=== PATIENT | female | born 1935 | race Caucasian/White ===

== ENCOUNTER 2018-02-22 18:25 | Emergency (ER) | payer MEDICARE, OTHER ==
[2018-02-22] MEDS ORDERED: Sodium Chloride 0.9% 10 ML Syringe FLUSH PRN (20:52)
[2018-02-22] MEDS ORDERED: Sodium Chloride 0.9% 1,000 ML IV ONE ×2 (20:52→21:08)
[2018-02-22] MEDS ORDERED: Acetaminophen 500 MG Tab PO ONE (20:53)
[2018-02-22] MEDS ORDERED: Ondansetron 4 MG/2 ML SDV IVPUSH ONE (20:53)
--- NOTE | 2018-02-22 21:01 | EDM.PDOC ---
ED HPI GENERAL MEDICAL PROBLEM - General Chief Complaint: Genitourinary Problem Stated Complaint: LOW BACK PAIN, FEVER Time Seen by Provider: 02/22/18 20:40 Source of Information: Reports: Patient, Family History Limitations: Reports: No Limitations - History of Present Illness INITIAL COMMENTS - FREE TEXT/NARRATIVE: Rosalina presents tonight with complaints of right flank pain, fever, chills, nausea for two days. 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 Right Flank Pain Score (Numeric/FACES): 4 - Related Data Allergies Allergy/AdvReac Type Severity Reaction Status Date / Time No Known Allergies Allergy Verified 02/22/18 19:52 Home Meds: Home Meds Amitriptyline [Elavil] 10 mg PO BEDTIME 02/22/18 [History] Aspirin [Adult Aspirin] 81 mg PO BEDTIME 02/22/18 [History] Celecoxib [CeleBREX] 200 mg PO BEDTIME 02/22/18 [History] Ergocalciferol (Vitamin D2) [Vitamin D2] 2,000 unit PO BEDTIME 02/22/18 [History ] Levothyroxine [Synthroid] 50 mcg PO BEDTIME 02/22/18 [History] Omeprazole 40 mg PO BEDTIME 02/22/18 [History] Ranitidine HCl [Ranitidine] 150 mg PO BID 02/22/18 [History] Zolpidem Tartrate [Ambien] 5 mg PO ASDIRECTED PRN 02/22/18 [History] atorvaSTATin [Lipitor] 20 mg PO BEDTIME 02/22/18 [History] Past Medical History HEENT History: Reports: Cataract, Hard of Hearing, Impaired Vision, Other (See Below) Other HEENT History: bilateral hearing aids Gastrointestinal History: Reports: Chronic Constipation Genitourinary History: Reports: UTI, Recurrent 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: Musculoskeletal History: Reports: Arthritis, Fracture Endocrine/Metabolic History: Reports: Hypothyroidism - Infectious Disease History Infectious Disease History: Reports: Chicken Pox, Measles, Mumps, Shingles - Past Surgical History HEENT Surgical History: Reports: Adenoidectomy, Cataract Surgery, Tonsillectomy Female Surgical History: Reports: Section, Hysterectomy, Salpingo- Oophorectomy Musculoskeletal Surgical History: Reports: Hip Replacement Social & Family History - Tobacco Use Smoking Status *Q: Never Smoker - Caffeine Use Caffeine Use: Reports: Coffee - Recreational Drug Use Recreational Drug Use: No ED ROS GENERAL - Review of Systems Review Of Systems: See Below Constitutional: Reports: Fever, Chills, Weakness HEENT: Reports: No Symptoms Respiratory: Denies: Shortness of Breath, Wheezing, Cough, Sputum Cardiovascular: Denies: Chest Pain, Blood Pressure Problem, Dyspnea on Exertion , Edema, Lightheadedness, Orthopnea, Palpitations, PND, Syncope Endocrine: Reports: No Symptoms GI/Abdominal: Reports: Nausea. Denies: Abdominal Pain, Black Stool, Bloody Stool, Constipation, Diarrhea, Difficulty Swallowing, Distension, Hematochezia, Vomiting : Reports: Flank Pain. Denies: Dysuria, Frequency, Hematuria, Incontinence, Pain, Urgency, Urinary Retention Musculoskeletal: Reports: Other (low back pain) Skin: Denies: Diaphoresis, Bruising, Pruritis, Rash, Erythema Neurological: Denies: Confusion, Dizziness, Headache, Numbness, Tingling, Difficulty Walking, Weakness, Gait Disturbance Psychiatric: Reports: No Symptoms Hematologic/Lymphatic: Reports: No Symptoms Immunologic: Reports: No Symptoms ED EXAM, RENAL/ - Physical Exam Exam: See Below Text/Narrative:: Rosalina is an alert and oriented 82 year old female presenting with complaints of fever, chills, nausea and right flank pain for two days. Exam Limited By: No Limitations General Appearance: Alert, WD/WN, Moderate Distress Eye Exam: Bilateral Eye: EOMI, Normal Inspection, PERRL Ears: Normal External Exam, Normal Canal, Hearing Grossly Normal, Normal TMs Nose: Normal Inspection, Normal Mucosa, No Blood Throat/Mouth: Normal Inspection, Normal Lips, Normal Teeth, Normal Gums, Normal Oropharynx, Normal Voice, No Airway Compromise Head: Atraumatic, Normocephalic Neck: Normal Inspection, Supple, Non-Tender, Full Range of Motion. No: Lymphadenopathy (R), Lymphadenopathy (L) Respiratory/Chest: No Respiratory Distress, Lungs Clear, Normal Breath Sounds, No Accessory Muscle Use, Chest Non-Tender Cardiovascular: Normal Peripheral Pulses, Regular Rate, Rhythm, No Edema, No Gallop, No Murmur, No Rub GI/Abdominal: Normal Bowel Sounds, Soft, Non-Tender, No Organomegaly, No Distention, No Mass Back Exam: Normal Inspection, Full Range of Motion, CVA Tenderness (R). No: CVA Tenderness (L), Decreased Range of Motion, Muscle Spasm, Paraspinal Tenderness, Vertebral Tenderness Extremities: Normal Inspection, Normal Range of Motion, Non-Tender, No Pedal Edema, Normal Capillary Refill Neurological: Alert, CN II-XII Intact, Normal Cognition, Normal Gait, Normal Reflexes, No Motor/Sensory Deficits Psychiatric: Normal Affect, Normal Mood Skin Exam: Dry, Intact, No Rash, Other (skin hot to touch, flushed in the face, neck and chest) Lymphatic: No Adenopathy EKG INTERPRETATION EKG Date: 02/22/18 Rhythm: NSR Rate (Beats/Min): 80 [place]: Normal P-Wave: Present QRS: Normal ST-T: Normal QT: Normal Course - Vital Signs Last Recorded V/S: Last Vital Signs Temp 37.9 C 02/22/18 21:24 Pulse 98 02/22/18 21:24 Resp 16 02/22/18 21:24 BP 145/68 H 02/22/18 21:24 Pulse Ox 98 02/22/18 21:24 Sepsis criteria - Orders/Labs/Meds Orders: Active Orders 24 hr Category Date Time Status EKG Documentation Completion [RC] ASDIRECTED Care 02/22/18 20:55 Active Chest 1V Frontal [CR] Stat Exams 02/22/18 20:54 Taken CULTURE BLOOD [BC] Urgent Lab 02/22/18 21:15 Received CULTURE BLOOD [BC] Urgent Lab 02/22/18 21:25 Received CULTURE URINE [RM] Stat Lab 02/22/18 20:58 Ordered UA W/MICROSCOPIC [URIN] Stat Lab 02/22/18 19:52 Ordered Sodium Chloride 0.9% [Saline Flush] Med 02/22/18 20:52 Active 10 ml FLUSH ASDIRECTED PRN Blood Culture x2 Reflex Set [OM.PC] Urgent Oth 02/22/18 21:06 Ordered Saline Lock Insert [OM.PC] Routine Oth 02/22/18 20:52 Ordered EKG 12 Lead [EK] Routine Ther 02/22/18 20:54 Ordered Medication Orders Sodium Chloride (Saline Flush) 10 ml FLUSH ASDIRECTED PRN PRN Reason: Keep Vein Open Last Admin: 02/22/18 21:09 Dose: 10 ml Labs: Laboratory Tests 02/22/18 02/22/18 02/22/18 Range/Units 19:52 20:52 20:52 WBC 8.9 (4.5-11.0) K/uL RBC 4.38 (3.30-5.50) M/uL Hgb 13.5 (12.0-15.0) g/dL Hct 41.4 (36.0-48.0) % MCV 95 (80-98) fL MCH 31 (27-31) pg MCHC 33 (32-36) % Plt Count 106 L (150-400) K/uL Neut % (Auto) 86 H (36-66) % Lymph % (Auto) 6 L (24-44) % [place] % (Auto) 8 H (2-6) % Eos % (Auto) 0 L (2-4) % Baso % (Auto) 0 (0-1) % Sodium 137 L (140-148) mmol/L Potassium 3.6 (3.6-5.2) mmol/L Chloride 100 (100-108) mmol/L Carbon Dioxide 27 (21-32) mmol/L Anion Gap 13.6 (5.0-14.0) mmol/L BUN 16 (7-18) mg/dL Creatinine 1.0 (0.6-1.0) mg/dL Est Cr Clr Drug Dosing 37.59 mL/min Estimated GFR (MDRD) 53 L (>60) Glucose 121 H (74-106) mg/dL Lactic Acid (0.4-2.0) mmol/L Calcium 9.0 (8.5-10.1) mg/dL Total Bilirubin 0.6 (0.2-1.0) mg/dL AST 54 H (15-37) U/L ALT 40 (12-78) U/L Alkaline Phosphatase 79 (46-116) U/L C-Reactive Protein 11.43 H (0.0-0.3) mg/dL Total Protein 7.4 (6.4-8.2) g/dL Albumin 3.7 (3.4-5.0) g/dL Globulin 3.7 H (2.3-3.5) g/dL Albumin/Globulin Ratio 1.0 L (1.2-2.2) Urine Color Yellow Urine Appearance Cloudy Urine pH 7.0 (4.5-8.0) Ur Specific [place] 1.015 (1.008-1.030) Urine Protein Negative (NEGATIVE) mg/dL Urine Glucose (UA) Normal (NEGATIVE) mg/dL Urine Ketones Negative (NEGATIVE) mg/dL Urine Occult Blood Moderate (NEGATIVE) Urine Nitrite Positive H (NEGATIVE) Urine Bilirubin Negative (NEGATIVE) Urine Urobilinogen Normal (NORMAL) mg/dL Ur Leukocyte Esterase Negative (NEGATIVE) Urine RBC 0-5 (0-5) Urine WBC 0-5 (0-5) Ur Epithelial Cells Rare Amorphous Sediment Rare Urine Bacteria Moderate Urine Mucus Not seen 02/22/18 Range/Units 20:54 WBC (4.5-11.0) K/uL RBC (3.30-5.50) M/uL Hgb (12.0-15.0) g/dL Hct (36.0-48.0) % MCV (80-98) fL MCH (27-31) pg MCHC (32-36) % Plt Count (150-400) K/uL Neut % (Auto) (36-66) % Lymph % (Auto) (24-44) % [place] % (Auto) (2-6) % Eos % (Auto) (2-4) % Baso % (Auto) (0-1) % Sodium (140-148) mmol/L Potassium (3.6-5.2) mmol/L Chloride (100-108) mmol/L Carbon Dioxide (21-32) mmol/L Anion Gap (5.0-14.0) mmol/L BUN (7-18) mg/dL Creatinine (0.6-1.0) mg/dL Est Cr Clr Drug Dosing mL/min Estimated GFR (MDRD) (>60) Glucose (74-106) mg/dL Lactic Acid 1.0 (0.4-2.0) mmol/L Calcium (8.5-10.1) mg/dL Total Bilirubin (0.2-1.0) mg/dL AST (15-37) U/L ALT (12-78) U/L Alkaline Phosphatase (46-116) U/L C-Reactive Protein (0.0-0.3) mg/dL Total Protein (6.4-8.2) g/dL Albumin (3.4-5.0) g/dL Globulin (2.3-3.5) g/dL Albumin/Globulin Ratio (1.2-2.2) Urine Color Urine Appearance Urine pH (4.5-8.0) Ur Specific [place] (1.008-1.030) Urine Protein (NEGATIVE) mg/dL Urine Glucose (UA) (NEGATIVE) mg/dL Urine Ketones (NEGATIVE) mg/dL Urine Occult Blood (NEGATIVE) Urine Nitrite (NEGATIVE) Urine Bilirubin (NEGATIVE) Urine Urobilinogen (NORMAL) mg/dL Ur Leukocyte Esterase (NEGATIVE) Urine RBC (0-5) Urine WBC (0-5) Ur Epithelial Cells Amorphous Sediment Urine Bacteria Urine Mucus Lab work reviewed, CRP elevated without elevated lactic acid or WBC, left shift. +UA Right flank pain Fever, chills, nausea Meds: Medications Generic Name Dose Route Start Last Admin Trade Name Freq PRN Reason Stop Dose Admin Sodium Chloride 10 ml 02/22/18 20:52 02/22/18 21:09 Saline Flush FLUSH 10 ml ASDIRECTED PRN Administration Keep Vein Open Discontinued Medications Generic Name Dose Route Start Last Admin Trade Name Freq PRN Reason Stop Dose Admin Acetaminophen 1,000 mg 02/22/18 20:53 02/22/18 21:08 Tylenol Extra Strength PO 02/22/18 20:54 1,000 mg ONETIME ONE Administration Ciprofloxacin 500 mg 02/22/18 21:56 02/22/18 22:41 Ciprofloxacin Hcl PO 02/22/18 21:57 500 mg ONETIME ONE Administration Sodium Chloride 1,000 mls @ 1,000 mls/hr 02/22/18 20:52 02/22/18 21:07 Normal Saline IV 02/22/18 21:51 1,000 mls/hr .BOLUS ONE Administration Sodium Chloride 1,000 mls @ 1,000 mls/hr 02/22/18 21:08 02/22/18 22:04 Normal Saline IV 02/22/18 22:07 1,000 mls/hr .BOLUS ONE Administration Ceftriaxone Sodium 1 gm/ 50 mls @ 100 mls/hr 02/22/18 21:55 02/22/18 22:42 Sodium Chloride IV 02/22/18 22:24 100 mls/hr ONETIME ONE Administration Ondansetron HCl 4 mg 02/22/18 20:53 02/22/18 21:08 Zofran IVPUSH 02/22/18 20:54 4 mg ONETIME ONE Administration - Radiology Interpretation Free Text/Narrative:: Chest x-ray wet read, no acute findings. Radiologist read pending. - Re-Assessments/Exams Free Text/Narrative Re-Assessment/Exam: 02/22/18 22:06 Rosalina reports she is feeling better. Chest x-ray, EKG, lab work reviewed with her. We will treat her for pyelonephritis, ceftriaxine 1 gram IV, ciprofloxacin 500mg PO. Patient in agreement with plan, all her questions were answered. Departure - Departure Time of Disposition: 23:05 Disposition: Home, Self-Care 01 Condition: Fair Clinical Impression: Pyelonephritis, Acute urinary tract infection - Discharge Information Referrals: PCP,None [Primary Care Provider] - Forms: ED Department Discharge Additional Instructions: You have been evaluated and treated in the emergency room tonight for acute urinary tract infection and right pyelonephritis. Keep yourself hydrated with plenty of water. Resume normal diet. Rest. You were given normal saline 2000ml IV, ceftriaxone 1 gram IV and ciprofloxacin 500mg by mouth, acetaminophen by mouth in the emergency room. Continue ciprofloxacin 500mg by mouth twice per day for a total of 7 days. Take acetaminophen and ibuprofen as needed for fever and pain. Cultures of urine and blood were completed tonight, you will be notified if your antibiotics need to be changed. Return to the emergency room for worsening, issues or concerns. Follow up with your primary provider in 7 to 14 days for a recheck. - My Orders Last 24 Hours: My Active Orders 02/22/18 19:52 UA W/MICROSCOPIC [URIN] Stat 02/22/18 20:52 Sodium Chloride 0.9% [Saline Flush] 10 ml FLUSH ASDIRECTED PRN Saline Lock Insert [OM.PC] Routine 02/22/18 20:54 Chest 1V Frontal [CR] Stat EKG 12 Lead [EK] Routine 02/22/18 20:55 EKG Documentation Completion [RC] ASDIRECTED 02/22/18 20:58 CULTURE URINE [RM] Stat 02/22/18 21:06 Blood Culture x2 Reflex Set [OM.PC] Urgent 02/22/18 21:15 CULTURE BLOOD [BC] Urgent 02/22/18 21:25 CULTURE BLOOD [BC] Urgent - Assessment/Plan Last 24 Hours: My Active Orders 02/22/18 19:52 UA W/MICROSCOPIC [URIN] Stat 02/22/18 20:52 Sodium Chloride 0.9% [Saline Flush] 10 ml FLUSH ASDIRECTED PRN Saline Lock Insert [OM.PC] Routine 02/22/18 20:54 Chest 1V Frontal [CR] Stat EKG 12 Lead [EK] Routine 02/22/18 20:55 EKG Documentation Completion [RC] ASDIRECTED 02/22/18 20:58 CULTURE URINE [RM] Stat 02/22/18 21:06 Blood Culture x2 Reflex Set [OM.PC] Urgent 02/22/18 21:15 CULTURE BLOOD [BC] Urgent 02/22/18 21:25 CULTURE BLOOD [BC] Urgent Assessment:: Acute urinary tract infection Right pyelonephritis Plan: Patient evaluated and treated in the emergency room tonight for acute urinary tract infection and right pyelonephritis. Keep hydrated with plenty of water. Resume normal diet. Rest. She was given normal saline 2000ml IV, ceftriaxone 1 gram IV and ciprofloxacin 500mg PO, acetaminophen PO in the emergency room. Continue ciprofloxacin 500mg PO twice per day for a total of 7 days. Take acetaminophen and ibuprofen as needed for fever and pain. Cultures of urine and blood were completed tonight, she will be notified if her antibiotics need to be changed. Return to the emergency room for worsening, issues or concerns. Follow up with primary provider in 7 to 14 days for a recheck.
[2018-02-22] MEDS ORDERED: cefTRIAXone 1 GM in Sodium Chloride 0.9% 50 ML IV ONE (21:55)
[2018-02-22] MEDS ORDERED: Ciprofloxacin 500 MG Tab PO ONE (21:56)
--- NOTE | 2018-02-25 09:11 | CR ---
Chest 1V Frontal INDICATION: fever, chills FINDINGS: Mild thoracic curve convex to the right. Aortic calcification. No focal infiltrate. Chest o therwise negative.
== END 2018-02-22 23:24 | disposition home or self-care (01) ==
LOC: JP.ED 18:25
DX: N12 Tubulo-interstitial nephritis, not specified as acute or chronic (principal); Z79.899 Other long term (current) drug therapy
CPT/HCPCS: 36415; 71045; 80053; 81001; 83605; 85025; 86140; 87040; 87086; 93005; 96361; 96365; 96375; 99284; A9270; J0696; J2405; J7040; J7050; 87088; 87186